=== PATIENT | female | born 1985 | race Two or more races ===

== ENCOUNTER 2016-08-15 10:29 | Emergency (ER) | payer MEDICAID ==
[~2016-08-15] VITALS: Ht 167.6 cm; Wt 94.1 kg
[~2016-08-15 10:29] MED LIST: GUAI118L19 PO; HYDR1TAB12 PO; IBUP-1222 PO; METF10002 PO; ONDA4TAB10 PO; PREN1TAB62 PO
[2016-08-15] MEDS ORDERED: ASPI81TA50 PO (11:09)
[2016-08-15] MEDS ORDERED: SODIUM CHLORIDE 0.9% 1,000ML IVBOLUS ONE (11:30)
[2016-08-15] MEDS ORDERED: SODIUM CHLORIDE FLUSH 10ML SYR IVF ONE (11:30)
[2016-08-15 11:43] LABS: BLOOD UREA NITROGEN 11 mg/dL (7-18)
[2016-08-15 11:50] LABS: ASPARTATE AMINO TRANSFERASE 48 U/L (15-37)
[2016-08-15 11:55] LABS: IS PT STATUS REG ER OR PRE ER? YES
[2016-08-15] MEDS ORDERED: KETOROLAC 30 MG/1 ML IM ONE (12:00)
[2016-08-15] MEDS ORDERED: KETOROLAC 30 MG/1 ML ONE (12:05)
[2016-08-15 13:14] VITALS: BP 127/75
== END 2016-08-15 13:16 | disposition home or self-care (01) ==
LOC: ED 12:23
DX: R07.89 Other chest pain (principal); E11.9 Type 2 diabetes mellitus without complications
CPT/HCPCS: 36415; 71010; 80053; 83690; 84484; 84703; 85025; 85379; 93005; 96372; 99285; J1885; J7030

== ENCOUNTER 2017-08-01 11:02 | Observation (INO) | payer MEDICAID ==
[~2017-08-01] VITALS: Ht 167.6 cm; Wt 99.0 kg
[~2017-08-01 11:02] MED LIST changes: +ASPI81TA50 PO; +PREN1TAB60 PO; +[UNRECOGNIZED DRUG - OTHER] IM; +insulin nph SC
[2017-08-01] MEDS ORDERED: INSU100V14 SQ-INSULIN (11:14)
[2017-08-01] MEDS ORDERED: LABE100T3 PO (11:14)
[2017-08-01 11:30] VITALS: BP 130/78
[2017-08-01] MEDS ORDERED: BETAMETHASONE 6 MG/ML, 5ML IM ONE (11:39)
[2017-08-01] MEDS: BETAMETHASONE 6 MG/ML, 5ML IM SCH (11:44)
[2017-08-01 11:54] LABS: MICROSCOPIC INDICATED
[2017-08-01] MEDS ORDERED: LACTATED RINGERS 1,000 ML IVBOLUS ONE (12:00)
[2017-08-01] MEDS ORDERED: HYDROcodone/APAP 10/325 MG TABLET PO ONE (13:00)
[2017-08-01] MEDS: LACTATED RINGERS 1,000 ML IV SCH ×2 (13:06→21:50)
[2017-08-01] MEDS ORDERED: metFORMIN 500 MG TABLET PO SCH (18:30)
[2017-08-01] MEDS ORDERED: INSULIN REGULAR 100 UNITS/ML, 3ML VIAL SQ-INSULIN ONE (19:00)
[2017-08-01] MEDS ORDERED: LABETALOL 100 MG TABLET ONE (19:36)
[2017-08-01] MEDS ORDERED: METHYLERGONOVINE 0.2 MG/ML IM ONE (19:50)
[2017-08-01] MEDS: ASPIRIN 81 MG TABLET EC PO SCH (20:01)
[2017-08-01] MEDS: metFORMIN 500 MG TABLET PO SCH (20:02)
[2017-08-01] MEDS ORDERED: INSULIN ASPART 70/30 100U/ML, PEN SQ-INSULIN SCH (21:00)
[2017-08-01] MEDS: LABETALOL 100 MG TABLET PO SCH (21:03)
[2017-08-02] MEDS: LACTATED RINGERS 1,000 ML IV SCH (05:53)
[2017-08-02] MEDS ORDERED: LABETALOL 100 MG TABLET PO SCH (06:00)
[2017-08-02] MEDS ORDERED: LABETALOL 100 MG TABLET ONE (09:13)
[2017-08-02] MEDS ORDERED: metFORMIN 500 MG TABLET ONE (09:13)
[2017-08-02] MEDS: LABETALOL 100 MG TABLET PO SCH (09:14)
[2017-08-02] MEDS: metFORMIN 500 MG TABLET PO SCH (09:14)
[2017-08-02] MEDS ORDERED: ASPIRIN 81 MG TABLET EC ONE (11:08)
[2017-08-02] MEDS: ASPIRIN 81 MG TABLET EC PO SCH (11:10)
[2017-08-02] MEDS: BETAMETHASONE 6 MG/ML, 5ML IM SCH (11:21)
== END 2017-08-02 12:35 | disposition home or self-care (01) ==
LOC: LDOP 11:02 → LDIP 14:40
PROVIDERS: ADMIT Obstetrics & Gynecology; ATTEND Obstetrics & Gynecology
DX: O62.9 Abnormality of forces of labor, unspecified (principal); O24.113 Pre-existing type 2 diabetes mellitus, in pregnancy, third trimester; O10.913 Unspecified pre-existing hypertension complicating pregnancy, third trimester; O60.03 Preterm labor without delivery, third trimester; Z3A.32 32 weeks gestation of pregnancy
CPT/HCPCS: 36415; 59025; 81001; 82570; 82731; 82962; 84156; 87081; 87086; 96360; 96361; 96372; G0378; J0702; J1815; J7120

== ENCOUNTER 2017-08-12 13:26 | Outpatient (CLI) | payer MEDICAID ==
[~2017-08-12] VITALS: Ht 167.6 cm
[~2017-08-12 13:26] MED LIST changes: +INSU100V14 SQ-INSULIN; +LABE100T3 PO
[2017-08-12 14:16] LABS: MICROSCOPIC INDICATED
[2017-08-12] MEDS ORDERED: TERBUTALINE 1 MG/ML, 1ML ONE (15:26)
[2017-08-12] MEDS ORDERED: TERBUTALINE 1 MG/ML, 1ML IV ONE (15:30)
== END 2017-08-12 16:15 | disposition home or self-care (01) ==
LOC: LDOP 13:26
PROVIDERS: ATTEND Obstetrics & Gynecology
DX: O26.893 Other specified pregnancy related conditions, third trimester (principal); R10.9 Unspecified abdominal pain; Z3A.33 33 weeks gestation of pregnancy
CPT/HCPCS: 36415; 59025; 81001; 82731; 87086; 99211; J3105; G0463

== ENCOUNTER 2017-09-04 09:22 | Outpatient (CLI) | payer MEDICAID ==
[~2017-09-04] VITALS: Ht 167.6 cm; Wt 101.3 kg
[2017-09-04 09:36] VITALS: BP 125/73
[2017-09-04] MEDS ORDERED: INSU100C5 SQ-INSULIN (09:44)
[2017-09-04 10:04] LABS: MICROSCOPIC INDICATED
[2017-09-04 10:09] LABS: ALANINE AMINOTRANSFERASE 25 U/L (12-78); ALBUMIN 2.4 g/dL (3.4-5.0); ANION GAP 12 mmol/L (5-15); CALCIUM 8.9 mg/dL (8.5-10.1); CHLORIDE 111 mmol/L (98-107); CREATININE 0.81 mg/dL (0.55-1.02)
[2017-09-04 10:12] LABS: ALKALINE PHOSPHATASE 165 U/L (45-117); BILIRUBIN, DIRECT < 0.1 mg/dL (0.1-0.2); BILIRUBIN,TOTAL 0.2 mg/dL (0.2-1.0); TOTAL PROTEIN 6.6 g/dL (6.4-8.2)
[2017-09-04 10:34] LABS: BASOPHILS # (AUTO) 0.12 x10^3/uL (0-0.1); BASOPHILS % (AUTO) 1 % (0-1); EOSINOPHILS # (AUTO) 0.14 x10^3/uL (0-0.4); EOSINOPHILS % (AUTO) 2 % (1-7); LYMPHOCYTES # (AUTO) 1.44 x10^3/uL (1-3.4); LYMPHOCYTES % (AUTO) 16 % (22-44); MD NO; MEAN CORPUSCULAR HEMOGLOBIN 27.1 pg (27.0-34.8); MEAN CORPUSCULAR HGB CONC 33.2 g/dL (32.4-35.8); MEAN CORPUSCULAR VOLUME 81.6 fL (80-100); MEAN PLATELET VOLUME 9.2 fL (7.4-10.4); MONOCYTES # (AUTO) 0.57 x10^3/uL (0.2-0.8); MONOCYTES % (AUTO) 6 % (2-9); NEUTROPHILS # (AUTO) 6.71 x10^3/uL (1.8-6.8); NEUTROPHILS % (AUTO) 75 % (42-75); PLATELET COUNT 271 x10^3/uL (130-400); RED BLOOD COUNT 4.31 x10^6/uL (3.82-5.3); RED CELL DISTRIBUTION WIDTH 17.1 % (9.6-15.2)
== END 2017-09-04 12:00 | disposition home or self-care (01) ==
LOC: LDOP 09:22
PROVIDERS: ATTEND Obstetrics & Gynecology
DX: O16.3 Unspecified maternal hypertension, third trimester (principal); Z3A.37 37 weeks gestation of pregnancy
CPT/HCPCS: 36415; 59025; 80053; 81001; 82248; 82570; 84156; 84550; 85025; 99211; G0463

== ENCOUNTER 2017-09-13 05:52 | Inpatient (IN) | payer MEDICAID ==
[~2017-09-13] VITALS: Ht 167.6 cm; Wt 101.8 kg
[~2017-09-13 05:52] MED LIST changes: +INSU100C5 SQ-INSULIN; -LABE100T3 PO; +LABE100T6 PO
[2017-09-13] MEDS ORDERED: OXYTOCIN 30U/ 0.9% NaCL 500ML 500 ML IV ONE (06:07)
[2017-09-13] MEDS ORDERED: OXYTOCIN 30U/ 0.9% NaCL 500ML 500 ML IV PRN (06:07)
[2017-09-13] MEDS ORDERED: D5%-LACTATED RINGERS 1,000 ML IV SCH (06:07)
[2017-09-13] MEDS ORDERED: TERBUTALINE 1 MG/ML, 1ML IVPush PRN (06:30)
[2017-09-13] MEDS ORDERED: FENTANYL PF 100 MCG/2ML IVPush PRN (06:30)
[2017-09-13] MEDS ORDERED: FENTANYL PF 100 MCG/2ML IV PRN (06:30)
[2017-09-13 06:32] LABS: BASOPHILS # (AUTO) 0.03 x10^3/uL (0-0.1); BASOPHILS % (AUTO) 0 % (0-1); EOSINOPHILS # (AUTO) 0.14 x10^3/uL (0-0.4); EOSINOPHILS % (AUTO) 2 % (1-7); LYMPHOCYTES # (AUTO) 1.65 x10^3/uL (1-3.4); LYMPHOCYTES % (AUTO) 21 % (22-44); MD NO; MEAN CORPUSCULAR HEMOGLOBIN 26.6 pg (27.0-34.8); MEAN CORPUSCULAR HGB CONC 32.8 g/dL (32.4-35.8); MEAN CORPUSCULAR VOLUME 81.1 fL (80-100); MEAN PLATELET VOLUME 8.3 fL (7.4-10.4); MONOCYTES # (AUTO) 0.54 x10^3/uL (0.2-0.8); MONOCYTES % (AUTO) 7 % (2-9); NEUTROPHILS # (AUTO) 5.68 x10^3/uL (1.8-6.8); NEUTROPHILS % (AUTO) 71 % (42-75); PLATELET COUNT 266 x10^3/uL (130-400); RED BLOOD COUNT 4.31 x10^6/uL (3.82-5.3); RED CELL DISTRIBUTION WIDTH 17.2 % (9.6-15.2)
[2017-09-13] MEDS: LACTATED RINGERS 1,000 ML IV SCH ×2 (06:37→09:54)
[2017-09-13 06:44] VITALS: BP 136/84
[2017-09-13] MEDS ORDERED: MISOPROSTOL 200 MCG TABLET ONE (07:10)
[2017-09-13] MEDS ORDERED: LIDOCAINE/PF 1%, 30ML ONE (07:10)
[2017-09-13] MEDS ORDERED: NEWBORN KIT ONE (07:10)
[2017-09-13] MEDS ORDERED: metFORMIN 500 MG TABLET ONE (08:46)
[2017-09-13] MEDS ORDERED: LABETALOL 100 MG TABLET ONE (08:46)
[2017-09-13] MEDS: metFORMIN 500 MG TABLET PO SCH ×2 (08:53→17:18)
[2017-09-13] MEDS: LABETALOL 100 MG TABLET PO SCH ×2 (08:56→17:18)
[2017-09-13 09:09] LABS: ALANINE AMINOTRANSFERASE 23 U/L (12-78); ALBUMIN 2.3 g/dL (3.4-5.0); ANION GAP 10 mmol/L (5-15); CALCIUM 8.7 mg/dL (8.5-10.1); CHLORIDE 110 mmol/L (98-107); CREATININE 0.86 mg/dL (0.55-1.02)
[2017-09-13 09:11] LABS: ALKALINE PHOSPHATASE 177 U/L (45-117); BILIRUBIN,TOTAL 0.2 mg/dL (0.2-1.0); TOTAL PROTEIN 6.5 g/dL (6.4-8.2)
[2017-09-13 09:19] LABS: MICROSCOPIC AUTO
[2017-09-13 09:28] LABS: CREATININE,URINE RANDOM 96.7 mg/dL
[2017-09-13] MEDS ORDERED: FENTANYL PF 100 MCG/2ML ONE (09:33)
[2017-09-13] MEDS ORDERED: OXYcodone/APAP 5/325MG TABLET ONE (10:57)
[2017-09-13] MEDS ORDERED: IBUPROFEN 600 MG TABLET ONE (10:57)
[2017-09-13] MEDS: OXYTOCIN 30U/ 0.9% NaCL 500ML 500 ML IV SCH ×7 (10:58→20:58)
[2017-09-13] MEDS: IBUPROFEN 600 MG TABLET PO PRN ×3 (11:00→23:48)
[2017-09-13] MEDS ORDERED: ACETAMINOPHEN 325 MG TABLET PO PRN ×2 (11:00)
[2017-09-13] MEDS ORDERED: MISOPROSTOL 200 MCG TABLET PR PRN (11:00)
[2017-09-13] MEDS: OXYcodone/APAP 5/325MG TABLET PO PRN ×2 (11:00→12:58)
[2017-09-13] MEDS ORDERED: BISACODYL 10 MG SUPP PR PRN (11:00)
[2017-09-13] MEDS ORDERED: ONDANSETRON 2MG/ML, 2ML IV PRN (11:00)
[2017-09-13] MEDS ORDERED: CALCIUM CARBONATE 500 MG TAB.CHEW PO PRN (11:00)
[2017-09-13] MEDS ORDERED: OXYcodone/APAP 5/325MG TABLET PO PRN (11:00)
[2017-09-13 12:15] VITALS: BP 120/77
[2017-09-13 16:06] VITALS: BP 122/74
[2017-09-13 17:15] VITALS: BP 126/78
[2017-09-13 18:40] LABS: BASOPHILS # (AUTO) 0.12 x10^3/uL (0-0.1); BASOPHILS % (AUTO) 1 % (0-1); EOSINOPHILS # (AUTO) 0.04 x10^3/uL (0-0.4); EOSINOPHILS % (AUTO) 0 % (1-7); LYMPHOCYTES # (AUTO) 1.36 x10^3/uL (1-3.4); LYMPHOCYTES % (AUTO) 11 % (22-44); MEAN CORPUSCULAR HEMOGLOBIN 27.5 pg (27.0-34.8); MEAN CORPUSCULAR HGB CONC 33.6 g/dL (32.4-35.8); MEAN CORPUSCULAR VOLUME 81.8 fL (80-100); MEAN PLATELET VOLUME 8.4 fL (7.4-10.4); MONOCYTES # (AUTO) 0.51 x10^3/uL (0.2-0.8); MONOCYTES % (AUTO) 4 % (2-9); NEUTROPHILS # (AUTO) 10.19 x10^3/uL (1.8-6.8); NEUTROPHILS % (AUTO) 84 % (42-75); PLATELET COUNT 230 x10^3/uL (130-400); RED CELL DISTRIBUTION WIDTH 16.9 % (9.6-15.2)
[2017-09-13 18:41] LABS: MD NO
[2017-09-13 19:45] VITALS: BP 127/80
[2017-09-13 23:45] VITALS: BP 117/75
[2017-09-14] VITALS (7 sets, daily range): BP systolic 110–135; BP diastolic 71–86
[2017-09-14] MEDS: LABETALOL 100 MG TABLET PO SCH ×2 (06:42→17:42)
[2017-09-14] MEDS: OXYTOCIN 30U/ 0.9% NaCL 500ML 500 ML IV SCH ×2 (06:58→16:23)
[2017-09-14] MEDS: DOCUSATE 100 MG CAPSULE PO PRN ×2 (08:26→21:59)
[2017-09-14] MEDS: PRENATAL VIT/IRON/FA 1 EACH TABLET PO SCH (08:26)
[2017-09-14] MEDS: metFORMIN 500 MG TABLET PO SCH ×2 (08:29→17:43)
[2017-09-14] MEDS: IBUPROFEN 600 MG TABLET PO PRN ×2 (12:49→21:59)
[2017-09-15 00:20] VITALS: BP_SYST 105; BP_SYST 116; BP_DIAS 65; BP_DIAS 74
[2017-09-15] MEDS: OXYcodone/APAP 5/325MG TABLET PO PRN (00:29)
[2017-09-15] MEDS: OXYTOCIN 30U/ 0.9% NaCL 500ML 500 ML IV SCH ×2 (02:58→12:59)
[2017-09-15 04:15] VITALS: BP 113/74
[2017-09-15 06:25] VITALS: BP 110/69
[2017-09-15] MEDS: LABETALOL 100 MG TABLET PO SCH (06:28)
[2017-09-15 08:31] VITALS: BP 112/72
[2017-09-15] MEDS: metFORMIN 500 MG TABLET PO SCH (08:31)
[2017-09-15] MEDS: PRENATAL VIT/IRON/FA 1 EACH TABLET PO SCH (08:31)
[2017-09-15] MEDS ORDERED: IBUP-1222 PO (09:47)
[2017-09-15] MEDS: IBUPROFEN 600 MG TABLET PO PRN (13:54)
== END 2017-09-15 14:03 | disposition home or self-care (01) | DRG 774 ==
LOC: LDIP 05:52 → 2NW 12:17
PROVIDERS: ADMIT Obstetrics & Gynecology; ATTEND Obstetrics & Gynecology
PROC: 10E0XZZ Delivery of Products of Conception, External Approach (ICD-10-PCS; principal; 2017-09-13)
PROC: 10907ZC Drainage of Amniotic Fluid, Therapeutic from Products of Conception, Via Natural or Artificial Opening (ICD-10-PCS; 2017-09-13)
PROC: 3E033VJ Introduction of Other Hormone into Peripheral Vein, Percutaneous Approach (ICD-10-PCS; 2017-09-13)
PROC: 0HQ9XZZ Repair Perineum Skin, External Approach (ICD-10-PCS; 2017-09-13)
DX: O10.92 Unspecified pre-existing hypertension complicating childbirth (principal); O24.12 Pre-existing type 2 diabetes mellitus, in childbirth; Z37.0 Single live birth; O70.0 First degree perineal laceration during delivery; O76 Abnormality in fetal heart rate and rhythm complicating labor and delivery; Z3A.38 38 weeks gestation of pregnancy; Z80.3 Family history of malignant neoplasm of breast; Z83.3 Family history of diabetes mellitus; Z82.49 Family history of ischemic heart disease and other diseases of the circulatory system; Z28.21 Immunization not carried out because of patient refusal
CPT/HCPCS: 36415; 80053; 81001; 82570; 82803; 82962; 84156; 84550; 85025; 86850; 86900; J3010; J2590; J7120